=== PATIENT | male | born 1995 | race Caucasian/White ===

== ENCOUNTER 2021-11-20 17:33 | Observation (INO) | payer BC, SELFPAY ==
[2021-11-20 17:36] VITALS: BP 173/100; PULSE 98; RESP 24; TEMP 37.1; O2SAT 98; BMI 26.6
--- NOTE | 2021-11-20 17:40 | ED_ITS ---
Discharge Plan Referrals Follow up/Referrals: Provider,ReferralMD [Primary Care Provider] - See instructions Discharge ED Provider: Tobi Curiel [facility] [place], [place] HPI General Stated complaint: NA/ Body aches, soa Time Seen by Provider: 11/20/21 17:50 Related Data Allergies Allergy/AdvReac Type Severity Reaction Status Date / Time Sulfa (Sulfonamide Allergy Verified 11/20/21 18:10 Antibiotics) Medical Decision Making ECG Data Tracing #1: I reviewed this ECG and interpreted as documented below: EKG interpreted by Tobi Curiel MD: Rhythm: sinus Rate: 88 [place]: normal Ectopy: none Conduction: normal ST Segment Tucker diffuse ST elevation es: Without T wave inversion or reciprocal changes. T Wave Changes: none Q Waves: none Findings consistent with pericarditis. Physician Consults Physician Consulted: Deborah Time: 17:50 Reason -: Cardiology Eval/Care Comment/Response: EKG transmitted to him and he has reviewed. He feels the patient's EKG shows pericarditis. Recommends NSAIDs, colchicine, admission and echocardiogram in the morning.
--- NOTE | 2021-11-20 17:56 | PC.NURSE ---
Dr Curiel speaking with dr Cabrera
[2021-11-20 18:08] VITALS: BMI 26.6
--- NOTE | 2021-11-20 18:10 | XR_ITS ---
PROCEDURE INFORMATION: Exam: XR Chest Exam date and time: 11/20/2021 6:25 PM Age: 26 years old Clinical indication: Shortness of breath; Additional info: SOA TECHNIQUE: Imaging protocol: Radiologic exam of the chest. Views: 1 view. COMPARISON: No relevant prior studies available. FINDINGS: Lungs: Lung volumes are mildly diminished. Trace bibasilar hazy opacities are present which may be secondary to diminished lung volumes. The lungs appear otherwise clear. No focal areas of consolidation. Pleural spaces: No pleural effusions or appreciable adenopathy. Negative for pneumothorax. Heart/Mediastinum: Cardiac silhouette and pulmonary vasculature are within range of normal. There is mild fullness to the azygos vein. Bones/joints: There is no evidence of acute fracture. IMPRESSION: 1. Lung volumes mildly diminished. 2. Trace bibasilar hazy opacities which may be secondary to diminished lung volumes.
[2021-11-20 18:19] LABS: Coronavirus 19, PCR Not Detected (NotDetected); Influenza A, PCR Not Detected (NotDetected); Influenza B, PCR Not Detected (NotDetected)
[2021-11-20 18:29] LABS: Anion Gap 9.8 mEq/L (5-15); Blood Urea Nitrogen 12 mg/dl (9-20); Calcium 9.2 mg/dl (8.4-10.2); Carbon Dioxide 30 mmol/L (22.0-30.0); Chloride 101 mmol/L (98-107); Creatinine Clearance Estimated 130 mL/min (50-200); Estimated Glomerular Filt Rate 91 ml/min (>60); GFR (African American) 110 ML/MIN (>60); Glucose 129 mg/dl (74-100); Lactic Acid 1.3 mmol/L (0.7-2.1); Potassium 3.8 mmoL/L (3.5-5.1); Sodium 137 mmol/L (136-145)
--- NOTE | 2021-11-20 18:32 | HMH.EDGENADL ---
Discharge Plan Disposition Patient Disposition: Admitted as Observation Condition: Fair Chief Complaint: Chest Pain Prescriptions Prescriptions: No Action No Known Home Medications Referrals Follow up/Referrals: Provider,Referral, MD [Primary Care Provider] - See instructions Clinical Impressions Clinical Impression: Acute pericarditis Discharge ED Provider: Tobi Curiel General Adult HPI General Chief complaint: Chest Pain Stated complaint: NA/ Body aches, soa Time Seen by Provider: 11/20/21 17:50 Mode of Arrival: Wheelchair Limitations: No Limitations Description of Symptoms (Recalled from ER Triage Doc. by RN): to ed per pvt car with c/o lt side sharp throbbing chest pain, worse with lying flat with movement and taking deep breaths. pt states he has been running a fever since . denies any sob, vomiting. pt states taking motrin 800mg every 5 hours. pt states he is from out of town and is to fly home to [place] tomorrow. pt with grunting resp noted History of Present Illness HPI narrative: Complains of sharp throbbing left-sided chest pain that worsens with breath and movement, starting this morning. He has been running a fever since which he thought was coming from his right thumb, possible infection. Denies shortness of breath. Denies cough. States he has no chronic medical problems. He is on Ashlyn for allergies, no other medications. He is a non-smoker. Patient is visiting here from [place], scheduled to fly back to [place]. Related Data Home Medications Medication Instructions Recorded Confirmed No Known Home Medications 11/20/21 11/20/21 Allergies Allergy/AdvReac Type Severity Reaction Status Date / Time Sulfa (Sulfonamide Allergy Verified 11/20/21 18:10 Antibiotics) ROS Obtained: Yes All systems reviewed & no additional complaints except as documented Constitutional Constitutional: Reports fever(s) ENT Ears, Nose, Mouth, and Throat: Denies nasal discharge and Denies sore throat Cardiovascular Cardiovascular: Reports chest pain Respiratory Respiratory: Denies shortness of breath and Reports pain with breathing Gastrointestinal Gastrointestingal: Denies abdominal pain, diarrhea or vomiting Physical Exam General General appearance: alert and in distress (Pale, in obvious pain, grunting breathing.) Head Head exam: atraumatic and normocephalic Eye Eye exam: Present normal appearance and EOMI ENT ENT exam: Present mucous membranes moist Neck Neck exam: Present normal inspection and trachea midline Expanded Neck Exam Neck exam focused ED: Absent JVD Chest Chest inspection: Present normal inspection and symmetric chest wall rise Respiratory Respiratory exam: Present normal lung sounds bilaterally and other (Grunting) Cardiovascular Cardiovascular exam: Present regular rate, normal rhythm and normal heart sounds; Absent rubs Abdominal Exam Abdominal exam: Present soft and normal bowel sounds; Absent distention, tenderness, guarding, rebound or rigidity Extremities Exam Extremities exam: Present normal inspection; Absent edema or calf tenderness Neurological Exam Neurological exam: Present alert, oriented X3 and CN II-XII intact; Absent motor sensory deficit Psychiatric Psychiatric exam: Present normal affect and normal mood Skin Skin exam: Present warm, dry and pallor Medical Decision Making Jacob Inquiry Pt receiving controlled substance: Yes Jacob was queried for this patient: Yes Risks and benefits of using a controlled substance: were not discussed with pt by me Vital Signs: 11/20/21 17:36 Temperature 98.7 F Temperature Source Oral Pulse Rate [Radial] 98 H Respiratory Rate 24 Blood Pressure [Right Arm] 173/100 H Blood Pressure Mean [Right Arm] 124 Blood Pressure Position [Right Arm] Sitting 02 Sat by Pulse Oximetry 98 Oxygen Delivery Method Room Air Lab Data Lab Results 11/20/21 17:52: Sodium 137, Potassium 3.8, Chloride
[2021-11-20 18:42] LABS: Troponin I 0.23 ng/ml (0.00-0.034)
[2021-11-20 18:52] LABS: Alanine Aminotransferase 27 U/L (12-78); Albumin Level 4.4 g/dl (3.5-5.0); Alkaline Phosphatase 74 U/L (38-126); Aspartate Amino Transferase 34 U/L (17-59); Bilirubin,Direct 0.1 mg/dl (0.0-0.4); Bilirubin,Total 0.1 mg/dl (0.2-1.3); Total Protein,Serum 7.7 g/dl (6.3-8.2)
--- NOTE | 2021-11-20 19:05 | PC.NURSE ---
family at bedside
[2021-11-20 19:06] LABS: Basophils # 0.1 K/mm3 (0-0.2); Basophils % 0.6 % (0.1-2.0); Eosinophils # 0.1 K/mm3 (0.0-0.4); Eosinophils % 0.4 % (0.1-12.0); Hematocrit 53.5 % (42.0-52.0); Lymphocytes # 1.2 K/mm3 (0.7-4.5); Lymphocytes % 9.2 % (10-50); Mean Corpuscular HGB Conc 31.8 g/dL (31.8-35.4); Mean Corpuscular Hemoglobin 30.8 pg (27.0-31.2); Mean Platelet Volume 9.3 fl (7.4-10.4); Monocytes # 1.3 K/mm3 (0.1-1.0); Monocytes % 9.7 % (1.7-9.3); Neutrophils # 10.7 K/mm3 (1.8-7.8); Neutrophils % 80.2 % (37.0-80.0); Platelet Count 209 K/mm3 (142-424); Red Blood Count 5.52 M/mm3 (4.60-6.20); Red Cell Distribution Width 13.1 % (11.5-17.5); White Blood Count 13.3 K/mm3 (4.8-10.8)
--- NOTE | 2021-11-20 19:24 | PC.NURSE ---
updated on plan of care
--- NOTE | 2021-11-20 20:27 | PC.NURSE ---
CHOLCHICINE REQUESTED FROM FLOOR- NOT AVAILABLE IN ER
[2021-11-20 22:41] VITALS: BP 143/93; PULSE 116; RESP 20; TEMP 37.1; O2SAT 97
[2021-11-20 22:50] VITALS: BP 159/95; PULSE 122; RESP 20; TEMP 37; O2SAT 94
[2021-11-20 23:02] VITALS: BMI 26.7
[2021-11-20 23:15] VITALS: PULSE 110
[2021-11-21] VITALS: BP 155/83; PULSE 100; PULSE 106; RESP 18; TEMP 36.8; O2SAT 94
[2021-11-21 00:37] LABS: Troponin I 0.18 ng/ml (0.00-0.034)
[2021-11-21 04:00] VITALS: BP 153/92; PULSE 100; PULSE 103; RESP 16; TEMP 37.2; O2SAT 97
--- NOTE | 2021-11-21 04:00 | ECG_ITS ---
APPROVED REPORT Exam: Resting ECG HR:106 bpm ECG Measurements Heart Rate 106 AXES ME 151 P 61 QRSd 108 QRS 66 QT 301 T 34 QTc 363 Conclusion SINUS TACHYCARDIA ACUTE PERICARDITIS - EXCLUDE ACUTE [place] Clinically UNCONFIRMED REPORT Electronically signed by : Niels Santa MD 11/21/2021 20:10:02
--- NOTE | 2021-11-21 05:12 | PC.NURSE ---
PT HAS RESTED INTERMITENTLY THIS SHIFT. REMAINS ALERT AND ORIENTED X4. LUNG SOUNDS ARE CLEAR BILATERALLY. TOLERATING ROOM AIR WELL. REMAINS AFEBRILE. HAS BEEN SINUS TACH ON TELE. AT 0400 ANOTHER EKG WAS OBTAINED DUE TO THE APPEARANCE OF WORSENING ST ELEVATION. EKG REVIEWED BY ER MD LIANG WITH NO NEW ORDERS. CARDIOLOGY IS TO SEE PT THIS AM. PT STATES THAT HE FEELS, LIKE I COULD WORK OUT . HAS BEEN AMBULATING TO INDEPENDENTLY. NO C/O N/V/D, SHORTNESS OF BREATH, OR CHEST PAIN. CALL GLEZ WITHIN REACH.
--- NOTE | 2021-11-21 07:00 | CA_ITS ---
APPROVED REPORT EXAM: Comprehensive 2D, Doppler, and color-flow Echocardiogram [employer] Controller: Alisha Foster CRT Ht: 5 ft 9 in Wt: 180lbs BSA: 1.98 BP: 153/92 mmHg Indications: Chest Pain, Endocarditis 2D Dimensions LVOT 1.78 cm (M/F) 1.5-2.5 LA Volume 29.90 mL LA Volume Index 15.10 mL/m2 (M/F) 16-34 M-Mode Dimensions RVDd 2.41 cm (0.9-2.6) LA Diam 3.11 cm (1.9-4.0) LVDd 4.71 cm (3.5-5.7) Ao Diam 3.07 cm (2.0-3.7) LVDs 3.28 cm (3.5-5.7) IVSd 1.22 cm (0.6-1.1) PWd 0.61 cm (0.6-1.1) EF (Teich) 57.70% FS 30.40% EDV (Teich) 102.90 mL TAPSE 1.65 (<1.7) ESV (Teich) 43.50 mL LV Diastology E Decel Time 183.00 (160-240 msec) E/A Ratio 0.88 MED E' 11.70 (< 7 cm/sec) MED A' 10.80 cm/s E'/MED E' Ratio 5.72 (>14) LAT E' 14.10 (<10 cm/sec) LAT A' 8.60 cm/s E/LAT E' Ratio 4.74 (>14) Aortic Valve AO Peak GR. 9.10 mmHg Mitral Valve MV E Max Shalom. 67.00 (40-130 cm/s) MV A Velocity 76.00 (40-130 cm/s) E/A Ratio 0.88 MV Decel. Time 183.00 (160-240 ms) MV PHT 54.00 ms Pulmonary Valve PV Peak Velocity 191.00 (50-150 cm/s) Tricuspid Valve TR P. Velocity 192.00 cm/s RAP Estimate 10.00 mmHg RVSP 24.80 mmHg Left Ventricle Left atrium is normal size, left ventricle is normal size, there is no concentric left ventricular hypertrophy, estimated ejection fraction 55% with no regional wall motion abnormality, diastolic parameters are within normal range. Right Ventricle Right atrium and right ventricle are normal size and contractility. Aortic Valve Aortic valve is grossly normal, there is no aortic stenosis or aortic insufficiency. Mitral Valve Mitral valve is grossly normal, there is no mitral stenosis, there is trace mitral regurgitation. Tricuspid Valve Tricuspid valve is grossly normal, there is trace tricuspid regurgitation. Pulmonic Valve Pulmonic valve is grossly normal, there is trace pulmonic insufficiency. Great Vessels Aortic root is normal size. Inferior vena cava is normal size with normal inspiratory collapse. Pericardium No significant pericardial effusion noted. Conclusion 1. Normal left ventricular size preserved left ventricular systolic function, estimated ejection fraction 55% with no regional wall motion abnormality, diastolic parameters are within normal range. 2. Trace mitral and tricuspid regurgitation. 3. No significant pericardial effusion noted. 4. Inferior vena cava normal size with normal inspiratory collapse. 5. No obvious valvular vegetation identified with this study, if clinically indicated transesophageal echocardiogram has better sensitivity detecting the valvular vegetation. Electronically signed by : Loki Botello MD 11/21/2021 09:06:07
--- NOTE | 2021-11-21 07:28 | P.CONPHA_ITS ---
[facility] Pharmacy VTE Monitoring Patient Demographics Admission date: 11/20/21 Report Date: 11/21/21 Time: 07:28 Patient Allergies Sulfa (Sulfonamide Antibiotics) Allergy (Verified 11/20/21 18:10) Height: 1.75 m Weight: 82 kg Current Active Problems (Updated 11/20/21 @ 18:40 by Tobi Curiel MD) Acute pericarditis (Acute) VTE Risk Labs: VTE Related Lab Results Hgb 17.0 g/dL (14.1-18.0) 11/20/21 17:52 Hct 53.5 % (42.0-52.0) H 11/20/21 17:52 Plt Count 209 K/mm3 (142-424) 11/20/21 17:52 BUN 12 mg/dl (9-20) 11/20/21 17:52 Creatinine 1.00 mg/dl (0.66-1.25) 11/20/21 17:52 Estimated Creat Clear 130 mL/min (50-200) 11/20/21 17:52 Was VTE Risk Assessment Performed: Yes VTE Risk Level: Very Low Risk Prophylaxis VTE Prophylaxis Ordered?: Yes Types of VTE Prophylaxis: TEDS Knee High Location of Applied Device: Bilateral Lower Extremeties
[2021-11-21 07:36] VITALS: BP 154/89; PULSE 104; RESP 14; TEMP 36.9; O2SAT 95
[2021-11-21 08:00] VITALS: PULSE 110
--- NOTE | 2021-11-21 11:28 | EXP.CARD.CON ---
History of Present Illness History of Present Illness Consult date: 11/21/21 Requesting physician: Shashank Shea Consult reason: chest pain (pericarditis) Chief complaint: sharp left sided chest pain Additional Medical History:: Denies past medical hx History of present illness: 26 year old white male presented to ED via pov with complaint of sharp, left sided chest pain 10/10 exacerbated with movement and deep breathing. patient reports hasn't felt well the past few days and had been running a subjective fever in which he had been taking Ibuprofen for. patient thought fever and bodyaches was related to a cut he has on his right thumb. Reports yesterday he developed a burning sensation in chest which intensified throughout the day prompting him to go to ER. Of note, patient is visiting family and recently flew from [place]. Upon presentation to ER EKG showed NSR rate of 88 with nonspecific t wave abnormality. EKG was discussed with Dr. Cabrera and patient was admitted for pericarditis. WBC on admission was 13.3, Trop was 0.23 trending down. A repeat EKG today showed sinus tach rate of [address] changes consistent with acute pericarditis. Patient reports he feels better then he did on admission. Reports palpitations. Denies chest pain or soa currently. Denies LE swelling or pain. [facility] Social History Smoking Status: Never smoker alcohol intake: current current occupational status: other Review of Systems Review of Systems Review of systems:: pertinent systems reviewed and negative unless documented below Constitutional Constitutional: Reports system reviewed and no additional complaints, except as documented *Cardiovascular Cardiovascular: Reports chest pain and Denies leg edema *Respiratory Respiratory: Reports system reviewed and no additional complaints, except as documented *Gastrointestinal Gastrointestinal: Reports system reviewed and no additional complaints, except as documented *Neurologic Neurologic: Reports system reviewed and no additional complaints, except as documented and Denies confusion Psychiatric Psychiatric: Reports system reviewed and no additional complaints, except as documented and Denies confusion Exam Data for Last 24 hours Vital signs and Labs for Last 24 Hours: Temp Pulse Resp BP Pulse Ox 98.4 F 110 H 14 154/89 H 95 11/21/21 07:36 11/21/21 08:00 11/21/21 07:36 11/21/21 07:36 11/21/21 07:36 Laboratory Results - last 24 hr 11/20/21 17:52: Sodium 137, Potassium 3.8, Chloride 101, Carbon Dioxide 30, Anion Gap 9.8, BUN 12, Creatinine 1.00, Estimated Creat Clear 130, Estimated GFR 91, Est GFR ( Amer) 110, Glucose 129 H, Calcium 9.2, Troponin I 0.23 H 11/20/21 17:52: Lactate 1.3 11/20/21 17:52: WBC 13.3 H, RBC 5.52, Hgb 17.0, Hct 53.5 H, MCV 97.0 H, MCH 30.8, MCHC 31.8, RDW 13.1, Plt Count 209, MPV 9.3, Neut % (Auto) 80.2 H, Lymph % (Auto) 9.2 L, [place] % (Auto) 9.7 H, Eos % (Auto) 0.4, Baso % (Auto) 0.6, Neut # (Auto) 10.7 H, Lymph # (Auto) 1.2, [place] # (Auto) 1.3 H, Eos # (Auto) 0.1, Baso # (Auto) 0.1 11/20/21 17:52: Total Bilirubin 0.1 L, Direct Bilirubin 0.1, Conjugated Bilirubin 0.0, Indirect Bilirubin 0.0, Unconjugated Bilirubin 0.0, AST 34, ALT 27, Alkaline Phosphatase 74, Total Protein 7.7, Albumin 4.4 11/20/21 17:55: SARS-CoV-2 (PCR) Not detected, Influenza A Untype (PCR) Not detected, Influenza Type B (PCR) Not detected 11/20/21 21:30: Troponin I 0.20 H 11/21/21 00:05: Troponin I 0.18 H I & O for Last 24 hours: Intake & Output 11/18/21 11/19/21 11/20/21 11/21/21 23:59 23:59 23:59 23:59 Intake Total 120 / 120 Output Total 700 / 700 Balance -580 / -580 Weight 180 lb 12.465 oz 180 lb 12.465 oz Constitutional Constitutional: no acute distress *Routine Respiratory Exam Respiratory: Present CTA bilaterally and symmetric chest movement *Routine Cardiovascular Exam Cardiovascular: Present RRR, Normal S1
[2021-11-21 11:37] VITALS: BP 155/72; PULSE 106; RESP 14; TEMP 36.9; O2SAT 95
--- NOTE | 2021-11-21 13:05 | EXP.HPDC ---
General Admission date:: 11/20/21 Discharge date: 11/21/21 *Admission Date: 11/20/21 *Chief complaint: chest pain *History of present illness: this patient presented to the [facility] ed - complaint: Chest Pain Stated complaint: NA/ Body aches, soa Time Seen by Provider: 11/20/21 17:50 Mode of Arrival: Wheelchair Limitations: No Limitations Description of Symptoms (Recalled from ER Triage Doc. by RN): to ed per pvt car with c/o lt side sharp throbbing chest pain, worse with lying flat with movement and taking deep breaths. pt states he has been running a fever since . denies any sob, vomiting. pt states taking motrin 800mg every 5 hours. pt states he is from out of town and is to fly home to [place] tomorrow. pt with grunting resp noted History of Present Illness HPI narrative: Complains of sharp throbbing left-sided chest pain that worsens with breath and movement, starting this morning.? He has been running a fever since which he thought was coming from his right thumb, possible infection.? Denies shortness of breath.? Denies cough.? States he has no chronic medical problems.? He is on Ashlyn for allergies, no other medications.? He is a non-smoker.? Patient is visiting here from [place], scheduled to fly back to [place]. pt was found to have pericarditis and was admitted - Consulted: Deborah Time: 17:55 Reason -: Cardiology Eval/Care Comment/Response: EKG transmitted to him and he has reviewed.? He feels the patient's EKG shows pericarditis.? Recommends NSAIDs, colchicine, admission and echocardiogram in the morning.? Expect patient will have a bump in his cardiac enzymes. Additional Consult: Monse Time: 20:04 Reason -: Admission Comment/Response: Agrees to admit the patient to the hospital.? We discussed the patient's clinical information, including history, exam, laboratory and radiology results and ED course.? Per hospital procedure, I will write temporary bridge inpatient orders on the patient. ? [facility] Social History (Updated 11/21/21 @ 11:46 by Ailyn Tracey APRN) Smoking Status: Never smoker alcohol intake: current current occupational status: other Travel in the last 8 weeks: Inside the [place] Review of Systems Review of Systems Review of systems:: pertinent systems reviewed and negative unless documented below *Neurologic Neurologic: Reports system reviewed and no additional complaints, except as documented and Denies confusion Psychiatric Psychiatric: Denies confusion Exam Data for Last 24 hours Vital signs and Labs for Last 24 Hours: Temp Pulse Resp BP Pulse Ox 98.4 F 106 H 14 155/72 H 95 11/21/21 11:37 11/21/21 11:37 11/21/21 11:37 11/21/21 11:37 11/21/21 11:37 Laboratory Results - last 24 hr 11/20/21 17:52: Sodium 137, Potassium 3.8, Chloride 101, Carbon Dioxide 30, Anion Gap 9.8, BUN 12, Creatinine 1.00, Estimated Creat Clear 130, Estimated GFR 91, Est GFR ( Amer) 110, Glucose 129 H, Calcium 9.2, Troponin I 0.23 H 11/20/21 17:52: Lactate 1.3 11/20/21 17:52: WBC 13.3 H, RBC 5.52, Hgb 17.0, Hct 53.5 H, MCV 97.0 H, MCH 30.8, MCHC 31.8, RDW 13.1, Plt Count 209, MPV 9.3, Neut % (Auto) 80.2 H, Lymph % (Auto) 9.2 L, [place] % (Auto) 9.7 H, Eos % (Auto) 0.4, Baso % (Auto) 0.6, Neut # (Auto) 10.7 H, Lymph # (Auto) 1.2, [place] # (Auto) 1.3 H, Eos # (Auto) 0.1, Baso # (Auto) 0.1 11/20/21 17:52: Total Bilirubin 0.1 L, Direct Bilirubin 0.1, Conjugated Bilirubin 0.0, Indirect Bilirubin 0.0, Unconjugated Bilirubin 0.0, AST 34, ALT 27, Alkaline Phosphatase 74, Total Protein 7.7, Albumin 4.4 11/20/21 17:55: SARS-CoV-2 (PCR) Not detected, Influenza A Untype (PCR) Not detected, Influenza Type B (PCR) Not detected 11/20/21 21:30: Troponin I 0.20 H 11/21/21 00:05: Troponin I 0.18 H I & O for Last 24 hours: Intake & Output 11/19/21 11/20/21 11/21/21 11/22/21 11:59 11:59 11:59 11:59 Intake Total 120 / 120 240 / 240 Output Total 700 / 700 Balance -580 / -580 240 / 240 Weight
--- NOTE | 2021-11-21 18:10 | ECG_ITS ---
APPROVED REPORT Exam: Resting ECG HR:88 bpm ECG Measurements Heart Rate 88 AXES MA 140 P 64 QRSd 98 QRS 74 QT 312 T 14 QTc 358 Conclusion SINUS RHYTHM EARLY REPOLARIZATION [ST ELEVATION WITH NORMALLY INFLECTED T-WAVE] NONSPECIFIC T-WAVE ABNORMALITY BORDERLINE ECG UNCONFIRMED REPORT Electronically signed by : Niels Santa MD 11/21/2021 20:10:30
--- NOTE | 2021-11-22 15:14 | CARE MANAGER ---
Called and spoke with Mr. Motta regarding post discharge status. Patient states that he is now back in [place], and is unsure of who to see for f/u. Patient advised to set himself up with a PCP (he usually sees [facility]), and cardiology (PCP may be able to recommend someone, once he establishes care).
== END 2021-11-21 13:38 | disposition home or self-care (01) ==
LOC: ER 18:40 → ICU 22:58
PROVIDERS: Admitting Provider Emergency Medicine; Emergency Provider Emergency Medicine; Visit Provider Emergency Medicine
DX: I30.9 Acute pericarditis, unspecified (principal)
CPT/HCPCS: 36415; 71045; 80048; 80076; 83605; 84484; 85025; 87040; 93005; 93306; C9803; G0378; J2405; U0003; U0005